=== PATIENT | male | born 1965 | race African-American/Black ===

== ENCOUNTER 2018-06-11 13:04 | Emergency (ER) | payer SELFPAY ==
[~2018-06-11] VITALS: Ht 175.3 cm; Wt 95.3 kg
[2018-06-11 14:00] LABS: Basophils # (auto) 0.1 uL; Basophils % (auto) 0.9 % (0.0-2.0); Eosinophils # (auto) 0.1 uL; Eosinophils % (auto) 1.1 % (0.0-7.0); Hematocrit 49.9 % (41.0-53.0); Hemoglobin 16.7 g/dL (13.5-17.5); Lymphocytes # (auto) 2.4 uL; Lymphocytes % (auto) 36.9 % (10.0-50.0); Mean Corpuscular Hemoglobin 32.7 pg (28.0-32.0); Mean Corpuscular Hgb Conc. 33.5 g/dL (32.0-36.0); Mean Corpuscular Volume 97.6 fL (80.0-100.0); Monocytes # (auto) 0.8 uL; Monocytes % (auto) 12.6 % (0.0-12.0); Neutrophils # (auto) 3.1 uL; Neutrophils % (auto) 48.5 % (37.0-80.0); Nucleated Red Blood Cells % 0.1 %; Platelet Count (auto) 237 10^3/uL (140-450); Red Blood Cells 5.12 10^6/uL (4.5-5.90); Red Cell Distribution Width 14.4 % (11.8-14.3); White Blood Cell 6.4 10^3/uL (4.4-10.8)
[2018-06-11 14:51] LABS: Potassium 3.9 mmol/L (3.5-5.1); Salicylate < 1.7 mg/dL (2.8-20.0)
[2018-06-11 14:55] LABS: Albumin 4.1 g/dL (3.4-5.0); BUN/Creatinine Ratio 19.4; Calcium 9.6 mg/dL (8.5-10.1)
[2018-06-11 14:57] LABS: Acetaminophen < 2.0 ug/mL (10-30)
[2018-06-11 15:09] LABS: Bilirubin, Total 1.4 mg/dL (0.2-1.0); Total Protein 9.3 g/dL (6.4-8.2)
[2018-06-11 16:00] LABS: Magnesium 2.5 mg/dL (1.6-2.6)
[2018-06-11 16:36] LABS: Alcohol, Urine < 3.0 mg/dL (0-5); Amphetamine Screen, Urine POSITIVE (NEGATIVE); Barbiturate Scree,Urine NEGATIVE (NEGATIVE); Benzodiazephine Screen, Urine NEGATIVE (NEGATIVE); Cannabinoid Screen, Urine NEGATIVE (NEGATIVE); Cocaine Screen, Urine NEGATIVE (NEGATIVE); Opiate Scree,Urine NEGATIVE (NEGATIVE); Phencyclidine Screen, Urine NEGATIVE (NEGATIVE)
[2018-06-11 18:13] VITALS: BP 139/94
== END 2018-06-11 19:04 | disposition home or self-care (01) ==
LOC: ER 13:19
DX: I10 Essential (primary) hypertension (principal); F20.9 Schizophrenia, unspecified; F31.9 Bipolar disorder, unspecified; F15.10 Other stimulant abuse, uncomplicated; R94.5 Abnormal results of liver function studies
CPT/HCPCS: 36415; 70450; 71045; 80053; 80307; 80329; 83735; 84484; 85025; 93005

== ENCOUNTER 2018-06-11 21:38 | Emergency (ER) | payer MEDICAID ==
[~2018-06-11] VITALS: Ht 175.3 cm; Wt 95.3 kg
[2018-06-11] MEDS ORDERED: LORazepam 2MG/ML-1ML VIAL IM ONE (22:15)
[2018-06-11] MEDS ORDERED: diphenhdrAMINE HCL 50 MG/1 ML VL IM ONE (22:15)
[2018-06-11 22:59] LABS: Alanine Aminotransferase 210 U/L (16-61); Anion Gap 7 (5-15); Blood Alcohol < 3.0 mg/dL (0-5); Blood Urea Nitrogen 22 mg/dL (7-18); Calcium 9.2 mg/dL (8.5-10.1); Carbon Dioxide 24 mmol/L (21-32); Chloride 107 mmol/L (98-107); Glucose 98 mg/dL (74-106); Potassium 4.4 mmol/L (3.5-5.1); Sodium 138 mmol/L (136-145)
[2018-06-11 23:02] LABS: Alkaline Phosphatase 77 U/L (45-117); Aspartate Aminotransferase 137 U/L (15-37); BUN/Creatinine Ratio 19.3; Bilirubin, Total 1.5 mg/dL (0.2-1.0); GFR African American 86 mL/min; GFR Non-African American 71 mL/min; Total Protein 8.9 g/dL (6.4-8.2)
[2018-06-11 23:03] LABS: Salicylate < 1.7 mg/dL (2.8-20.0)
[2018-06-11 23:07] LABS: Acetaminophen < 2.0 ug/mL (10-30)
[2018-06-11 23:19] LABS: Basophils # (auto) 0.1 uL; Basophils % (auto) 1.7 % (0.0-2.0); Eosinophils # (auto) 0.2 uL; Eosinophils % (auto) 2.5 % (0.0-7.0); Hematocrit 48.6 % (41.0-53.0); Hemoglobin 16.3 g/dL (13.5-17.5); Lymphocytes # (auto) 3.5 uL; Mean Corpuscular Hemoglobin 32.5 pg (28.0-32.0); Mean Corpuscular Hgb Conc. 33.6 g/dL (32.0-36.0); Mean Corpuscular Volume 96.8 fL (80.0-100.0); Monocytes % (auto) 12.6 % (0.0-12.0); Neutrophils # (auto) 3.4 uL; Neutrophils % (auto) 41.2 % (37.0-80.0); Nucleated Red Blood Cells % 0.3 %; Platelet Count (auto) 219 10^3/uL (140-450); Red Blood Cells 5.02 10^6/uL (4.5-5.90); Red Cell Distribution Width 14.5 % (11.8-14.3); White Blood Cell 8.3 10^3/uL (4.4-10.8)
[2018-06-12 11:06] LABS: Urine Bacteria NONE SEEN /hpf (None Seen); Urine Blood Negative /uL (Negative); Urine Mucus FEW (None Seen); Urine Specific Gravity 1.035 (1.001-1.035); Urine WBC 2 /hpf (0 - 3)
[2018-06-12 11:22] LABS: Amphetamine Screen, Urine POSITIVE (NEGATIVE); Barbiturate Scree,Urine NEGATIVE (NEGATIVE); Benzodiazephine Screen, Urine NEGATIVE (NEGATIVE); Cannabinoid Screen, Urine NEGATIVE (NEGATIVE); Cocaine Screen, Urine NEGATIVE (NEGATIVE); Opiate Scree,Urine NEGATIVE (NEGATIVE); Phencyclidine Screen, Urine NEGATIVE (NEGATIVE)
[2018-06-12] MEDS: clonazePAM 0.5 MG TAB PO SCH (20:00)
[2018-06-12] MEDS: BENZTROPINE MESY 0.5 MG TAB PO SCH (22:00)
[2018-06-12] MEDS: risperiDONE 1 MG TAB PO SCH (22:00)
[2018-06-13] MEDS: risperiDONE 1 MG TAB PO SCH ×3 (08:20→22:33)
[2018-06-13] MEDS: BENZTROPINE MESY 0.5 MG TAB PO SCH ×2 (08:21→22:33)
[2018-06-13] MEDS: clonazePAM 0.5 MG TAB PO SCH (22:33)
[2018-06-14] MEDS: risperiDONE 1 MG TAB PO SCH ×3 (07:40→22:40)
[2018-06-14] MEDS: BENZTROPINE MESY 0.5 MG TAB PO SCH ×2 (10:26→22:40)
[2018-06-14] MEDS ORDERED: ONDANSETRON HCL 4 MG/2 ML VIAL IM ONE (19:15)
[2018-06-14] MEDS: clonazePAM 0.5 MG TAB PO SCH (22:40)
[2018-06-15] MEDS ORDERED: risperiDONE 1 MG TAB ONE (07:13)
[2018-06-15] MEDS: risperiDONE 1 MG TAB PO SCH ×3 (07:15→22:07)
[2018-06-15] MEDS: BENZTROPINE MESY 0.5 MG TAB PO SCH ×2 (10:30→22:07)
[2018-06-15] MEDS: clonazePAM 0.5 MG TAB PO SCH (22:07)
[2018-06-16] MEDS: risperiDONE 1 MG TAB PO SCH ×3 (07:23→21:44)
[2018-06-16] MEDS: BENZTROPINE MESY 0.5 MG TAB PO SCH ×2 (15:00→21:45)
[2018-06-16] MEDS: clonazePAM 0.5 MG TAB PO SCH (21:44)
[2018-06-17] MEDS: risperiDONE 1 MG TAB PO SCH ×2 (07:40→17:59)
[2018-06-17] MEDS: BENZTROPINE MESY 0.5 MG TAB PO SCH (17:58)
[2018-06-18] MEDS: risperiDONE 1 MG TAB PO SCH ×2 (06:00→14:40)
[2018-06-18 11:21] VITALS: BP 112/73
== END 2018-06-18 20:52 | disposition home or self-care (01) ==
LOC: ER 21:38
DX: F23 Brief psychotic disorder (principal); R44.3 Hallucinations, unspecified; F31.9 Bipolar disorder, unspecified; I10 Essential (primary) hypertension; F12.10 Cannabis abuse, uncomplicated; F15.10 Other stimulant abuse, uncomplicated; Z59.0 Homelessness
CPT/HCPCS: 36415; 74176; 80053; 80307; 80320; 80329; 81001; 85025; 96372; 99284; J1200; J2060

== ENCOUNTER 2025-03-25 10:30 | Emergency (ER) | payer MEDICAID, OTHER ==
[~2025-03-25] VITALS: Ht 175.3 cm; Wt 101.0 kg
--- NOTE | 2025-03-25 11:37 | ED.PDOC ---
Psychiatric HPI Comments 59 y.o male with PMHx of schizophrenia, depression and HTN, presents to the ED for an evaluation of mental health. EMS reports patient is coming from a boarding care facility where he resides at the moment and states he is not given his medication for a long time. Patient states he is hearing voices telling him to kill himself however he has no intention nor plan to harm himself or others. He wants his medications. Denies any other symptoms. Chief Complaint: Suicidal Time Seen by MD: 10:32 Primary Care Provider: [facility] Reviewed Notes: Nurses Notes, Decoration Checker Notes, Medications, Allergies Information Source: Patient, Emergency Med Personnel Mode of Arrival: EMS Severity: Unable to Care for Self Severity of Pain: None Severity of Mental Status: Moderate Severity of Symptoms: Moderate Duration: Since onset Presents with: Unclear Thinking Circumstance: Medical Clearance Current substance abuse: None Stressors: None History of: Schizophrenia Quality: Other Associated signs and symptoms: Other Past Medical History PAST MEDICAL HISTORY: Depression, HTN, Schizophrenia Surgical History: Denies all surgeries Family History Family History: No family hx of HTN Social History Smoker: Non-Smoker Alcohol: Denies ETOH Use Drugs: Marijuana, Methamphetamine Lives In: Assisted Care Constitutional: denies: chills, diaphoresis, fatigue, fever, malaise, sweats, weakness, others EENTM: denies: blurred vision, double vision, ear bleeding, ear discharge, ear drainage, ear pain, ear ringing, eye pain, eye redness, hearing loss, mouth pain, mouth swelling, nasal discharge, nose bleeding, nose congestion, nose pain, photophobia, tearing, throat pain, throat swelling, voice changes, others Respiratory: denies: cough, hemoptysis, orthopnea, SOB at rest, shortness of breath, SOB with excertion, stridor, wheezing, others Cardiovascular: denies: chest pain, dizzy spells, diaphoresis, Dyspnea on exertion, edema, irregular heart beat, left arm pain, lightheadedness, palpitations, PND, syncope, others Gastrointestinal: denies: abdomen distended, abdominal pain, blood streaked bowels, constipated, diarrhea, dysphagia, difficulty swallowing, hematemesis, melena, nausea, poor appetite, poor fluid intake, rectal bleeding, rectal pain, vomiting, others Genitourinary: denies: burning, dysuria, flank pain, frequency, hematuria, incontinence, penile discharge, penile sore, pain, testicle pain, testicle swelling, urgency, others Neurological: denies: dizziness, fainting, headache, left sided numbness, left sided weakness, numbness, paresthesia, pre-existing deficit, right sided numbness, right sided weakness, seizure, speech problems, tingling, tremors, weakness, others Musculoskeletal: denies: back pain, gout, joint pain, joint swelling, muscle pain, muscle stiffness, neck pain, others Integumetry: denies: bruises, change in color, change in hair/nails, dryness, laceration, lesions, lumps, rash, wounds, others Allergic/Immunocompromised: denies: Difficulty Healing, Frequent Infections, Hives, Itching, others Hematologic/Lymphatic: denies: anemia, blood clots, easy bleeding, easy bruising, swollen glands, others Endocrine: denies: excessive hunger, excessive sweating, excessive thirst, excessive urination, flushing, intolerance to cold, intolerance to heat, unexplained weight gain, unexplained weight loss, others Psychiatric: reports: schizophrenia; denies: anxiety, bipolar disorder, depression, hopeless, panic disorder, sleepless, suicidal, others All Other Systems: Reviewed and Negative Physical Exam General Appearance: Moderate Distress HEENT: Normal ENT Inspection, Pharynx Normal, TMs Normal Neck: Full Range of Motion, Non-Tender, Normal, Normal Inspection Respiratory: Chest Non-Tender, Lungs Clear, No Accessory Muscle Use, No Respiratory Distress, Normal Breath Sounds Cardiovascular: No Edema, No JVD, No Murmur, No Gallop, Normal Peripheral Pulses, Regular Rate/Rhythm Breast Exam: Deferred Gastrointestinal: No Organomegaly, Non Tender, No Pulsatile Mass, Normal Bowel Sounds, Soft Genitalia: Deferred Pelvic: Deferred Rectal: Deferred Extremities: No calf tenderness, Normal capillary refill, Normal inspection, Normal range of motion, Non-tender, No pedal edema Musculoskeletal : Apperance: Normal Neurologic: Alert, linen folder II-XII nml as Tested, No Motor Deficits, Normal Affect, Normal Mood, No Sensory Deficits Cerebellar Function: Normal Reflexes: Normal Skin: Dry, Normal Color, Warm Peripheral Pulses: 3+ Radial (R), 3+ Radial (L) Lymphatic: No Adenopathy Was a procedure done? Was a procedure done?: No Psych Differential Dx Psych. Differential Dx: Anxiety, Schizoprenia X-Ray, Labs, Meds, VS Vital Signs Date Time Temp Pulse Resp B/P (MAP) Pulse Ox O2 Delivery O2 Flow Rate FiO2 03/25/25 10:54 98.0 79 18 149/86 98 98.0 Patient alert. Came in because of medication. History of psychiatric illness. Vitals stable. Denies suicidal or homicidal ideation. No injuries. Medically cleared. Psychiatric evaluation. Time of 1ST Reevaluation: 11:32 Reevaluation 1ST: Improved Patient Education/Counseling: Diagnosis, Treatment, Prognosis Family Education/Counseling: No Family Present Departure 1 Departure Time of Disposition: 11:57 Impression: Primary Impression: Schizophrenia Qualified Codes: F20.9 - Schizophrenia, unspecified Disposition: 30 STILL A PATIENT Condition: Good Critical Care Note Critical Care Time?: No Stability Stability form required: No I personally scribed for HOMERO GOODEN MD ([email or web address]) on 03/25/25 at 11:37. Electronically submitted by Petrona Blankenship ([facility]). HOMERO GOODEN MD Mar 25, 2025 11:37
--- NOTE | 2025-03-25 17:18 | DVHINCON2 ---
Date of Service if different f: Mar 25, 2025 Time of Service: 16:55 Assessment and Plan ASSESSMENT AND PLAN Assessment and Plan The patient is a 59-year-old single male who resides in a long-term and is currently unemployed. He has a psychiatric history significant for Schizophrenia. He presented voluntarily to the Emergency Department for evaluation of disorganized thinking and command auditory hallucinations. History of Present Illness The patient was evaluated in the Emergency Department by the commercial loan underwriter and the RN via the telepsychiatry portal. On evaluation, the patient appeared disorganized and internally preoccupied, though he was not overtly observed responding to internal stimuli. He endorsed command auditory hallucinations, reporting voices telling him to harm himself, which he stated have been persistent, distressing, and disruptive to his sleep. He also endorsed visual hallucinations. The patient expressed paranoid delusions, stating that people are following him and are out to get him, consistent with prior presentations. He reported poor sleep, and denied changes in appetite. Throughout the interview, he maintained poor eye contact and described feeling overwhelmed, frustrated, irritable, and on edge, with worsening symptoms over the past several days. He endorsed feelings of helplessness and uselessness and reported passive suicidal ideation with a plan, though no immediate intent was articulated at the time of evaluation. He reported a history of anxiety but denied symptoms consistent with panic disorder, agoraphobia, social phobia, specific phobias, or manic or hypomanic episodes. Supportive therapy and psychoeducation were provided, including discussion of coping skills, medication adherence, psychotherapy, and the importance of continuity of care. The patient verbalized limited understanding but expressed willingness to engage in treatment. Review of Systems As per HPI and problem list. Physical Examination Vital Signs: As per protocol and nursing documentation. Musculoskeletal / Neurological Normal body habitus Normal muscle tone and strength Restless Mental Status Examination Appearance: Middle-aged male examined at bedside; no acute physical distress; fair grooming and hygiene Attitude: Alert and superficially cooperative Eye Contact: Poor Psychomotor Activity: No agitation or retardation Level of Consciousness: Alert and awake Orientation: Oriented to person, place, and time Mood: Okay Affect: Constricted, markedly reduced range Speech: Decreased volume, rate, and tone Cognition: Poor attention and concentration; impaired recent and remote memory Thought Process: Disorganized, non-linear, with loosened associations, tangentiality, and intermittent incoherence Thought Content:Command auditory hallucinations, Visual hallucinations. Paranoid delusions. Passive suicidal ideation with plan. Denies homicidal ideation Insight/Judgment: Poor Past Psychiatric History Diagnosis: Schizophrenia Psychiatric hospitalizations: Endorses prior hospitalizations Suicide attempts: Denies Outpatient care: Not clearly established Medication trials: Olanzapine (Zyprexa) Substance Use History Methamphetamine: Recurrent use Alcohol: History of use Cannabis: History of use Other substances: Denies Past Medical History / Allergies No significant medical history reported Allergies: No known drug allergies (NKA) Social / Developmental History Single Resides in a long-term Unemployed Denies access to firearms or weapons Denies service Denies history of physical, sexual, or emotional abuse Denies legal history Family Psychiatric History Denies Assessment This is a 59-year-old male with chronic schizophrenia, presenting with acute psychiatric decompensation, including command auditory hallucinations, visual hallucinations, paranoid delusions, disorganized thought processes, and passive suicidal ideation with a plan, in the context of substance use and medication nonadherence The patient demonstrates poor insight and judgment and is unable to maintain safety in the community. His presentation is concerning for high suicide risk given the presence of CAH directing self-harm. Legal Status Voluntary, though patient meets criteria for inpatient psychiatric admission.Consider involuntary hold if patient attempts to leave prior to stabilization Diagnoses Psychiatric Schizophrenia Medical See List Plan Disposition Admit to inpatient psychiatric unit for acute stabilization and continuation of care Medications Restart olanzapine 5 mg PO daily and 10 mg PO QHS Start benztropine (Cogentin) 1 mg PO BID for EPS prophylaxis Administer one-time dose of olanzapine PO now Risks, benefits, and alternatives discussed in detail Medical / Labs Obtain urine drug screen (UDS) Monitor vitals and metabolic parameters as indicated Safety Maintain close observation and suicide precautions Structured and therapeutic milieu Ongoing assessment of SI, psychosis, and response to treatment Plan discussed with: Other (RN. ) LORI OROZCO MD Mar 25, 2025 17:18
[2025-03-25] MEDS: OLANZapine 5 MG TAB PO ONE ×2 (18:52→22:00)
[2025-03-25] MEDS: BENZTROPINE MESY 0.5 MG TAB PO ONE (23:43)
[2025-03-26 09:19] VITALS: PULSE 72; RESP 20; O2SAT 97
[2025-03-26] MEDS: OLANZapine 5 MG TAB PO ONE (10:46)
[2025-03-26 13:55] LABS: Hematocrit 43.1 % (41.0-53.0); Hemoglobin 14.5 g/dL (13.5-17.5); Mean Corpuscular Hemoglobin 31.9 pg (28.0-32.0); Mean Corpuscular Volume 95.3 fL (80.0-100.0); Nucleated Red Blood Cells % 0.1 %
[2025-03-26 14:11] LABS: Albumin 4.3 g/dL (3.2-4.8); Alkaline Phosphatase 61 U/L (46-116); Anion Gap 7 (5-15); BUN/Creatinine Ratio 10.0 (10.0-20.0); Blood Urea Nitrogen 9 mg/dL (9-23); Calcium 9.8 mg/dL (8.7-10.4); Carbon Dioxide 26 mmol/L (20-31); Chloride 106 mmol/L (98-107); Glucose 99 mg/dL (74-106); Potassium 3.9 mmol/L (3.5-5.1); Sodium 139 mmol/L (136-145)
[2025-03-26 14:12] LABS: Bilirubin, Total 0.6 mg/dL (0.2-1.0)
[2025-03-26 14:18] LABS: Amphetamine Screen, Urine Neg (NEGATIVE); Barbiturate Scree,Urine Neg (NEGATIVE); Benzodiazephine Screen, Urine Neg (NEGATIVE); Cannabinoid Screen, Urine Neg (NEGATIVE); Cocaine Screen, Urine Neg (NEGATIVE); Opiate Scree,Urine Neg (NEGATIVE); Phencyclidine Screen, Urine Neg (NEGATIVE)
[2025-03-26 14:18] LABS: Alanine Aminotransferase 88 U/L (7-40); Total Protein 8.2 g/dL (5.7-8.2)
[2025-03-26] MEDS: BENZTROPINE MESY 0.5 MG TAB PO ONE (22:25)
[2025-03-26 22:40] VITALS: O2SAT 97
[2025-03-27 07:40] VITALS: PULSE 64; RESP 18; O2SAT 97
[2025-03-27] MEDS: OLANZapine 5 MG TAB PO ONE (10:20)
[2025-03-27 18:28] VITALS: BP 150/91; PULSE 75; RESP 18; TEMP 98.3; O2SAT 96
== END 2025-03-27 18:30 ==
LOC: ER 10:30 → EDBD 10:30 → ER 03-27 18:30
DX: F20.9 Schizophrenia, unspecified (principal); I10 Essential (primary) hypertension; Z91.148 Patient's other noncompliance with medication regimen for other reason; Z79.899 Other long term (current) drug therapy
CPT/HCPCS: 36415; 80053; 80307; 80320; 85025